=== PATIENT | female | born 1955 | race Caucasian/White ===

== ENCOUNTER 2018-02-14 15:35 | Emergency (ER) | payer MEDICAID, OTHER ==
[~2018-02-14] VITALS: Ht 165.1 cm; Wt 63.6 kg
[~2018-02-14 15:35] MED LIST: SULF1TAB49 PO
[2018-02-14 15:51] VITALS: BP 138/97
[2018-02-14] MEDS ORDERED: acetaminophen 325mg tablet PO ONE (17:35)
[2018-02-14] MEDS ORDERED: ONDA4TAB6 PO (17:43)
--- NOTE | 2018-02-14 17:48 | NUR ---
PT MARISA JELLO AND JUICE WELL, NO N/V
== END 2018-02-14 17:49 | disposition home or self-care (01) ==
LOC: ER 15:36
DX: R11.0 Nausea (principal); R10.30 Lower abdominal pain, unspecified; Z79.899 Other long term (current) drug therapy
CPT/HCPCS: 99283